=== PATIENT | female | born 1940 | race Caucasian/White ===

== ENCOUNTER 2017-07-01 10:50 | Emergency (ER) | payer OTHER, MEDICARE ==
[2017-07-01 11:23] VITALS: BP 117/64; PULSE 78; TEMP 97; BMI 18.9
[2017-07-01] MEDS ORDERED: SILVER SULFADIAZINE 1% TOP CREAM 50 GM JAR TP ONE (11:24)
--- NOTE | 2017-07-01 11:25 | PDOC ---
History of Present Illness - General Chief Complaint: Burn Stated Complaint: RIGHT HAND BURN Time Seen by Provider: 07/01/17 11:18 History Source: Patient Exam Limitations: No Limitations - History of Present Illness Initial Comments: 07/01/17 11:19 77 y/o female burned her hand with hot steam from tea Wednesday night. Now red, painful and blisters. UTD with Tetanus last 5 years. No fever or chills. Wants hand looked at. No fall or trauma. Past History - Past Medical History Allergies/Adverse Reactions: Allergies Allergy/AdvReac Type Severity Reaction Status Date / Time No Known Allergies Allergy Verified 07/01/17 11:16 Home Medications: Ambulatory Orders Cyanocobalamin (Vitamin B-12) [Vitamin B-12] 1,000 mcg PO DAILY 11/08/14 Folic Acid/Multivit-Min/Lutein [Centrum Silver Chewable Tablet] 1 each PO DAILY 11/08/14 Silver Sulfadiazine [Silvadene] 85 gm TP TID #1 cream..g. 07/01/17 Cardiac Disorders: Yes (MITRAL VALVE PROLAPSE) - Suicide/Smoking/Psychosocial Hx Smoking Status: No Smoking History: Never smoked Number of Cigarettes Smoked Daily: 0 Hx Alcohol Use: No Drug/Substance Use Hx: No Substance Use Type: None Review of Systems - Review of Systems Able to Perform ROS?: Yes Is the patient limited Bhutanese proficient: No Constitutional: No: Chills, Fever Respiratory: No: Shortness of Breath Cardiac (ROS): No: Chest Pain Musculoskeletal: No: Joint Pain Integumentary: Yes: Erythema. No: Pruritus Neurological: No: Numbness, Tingling All Other Systems: Reviewed and Negative *Physical Exam - Physical Exam General Appearance: Yes: Nourished, Appropriately Dressed. No: Apparent Distress HEENT: positive: Normal ENT Inspection, Normal Voice Neck: positive: Supple Respiratory/Chest: positive: Lungs Clear, Normal Breath Sounds Cardiovascular: positive: Regular Rhythm, Regular Rate, S1, S2. negative: Edema , JVD, Murmur Vascular Pulses: Femoral (R): 4+, Femoral (L): 4+, Carotid (R): 4+, Carotid (L) : 4+, Dorsalis-Pedis (R): 4+, Doralis-Pedis (L): 4+ Lymphatic: negative: Adenopathy, Tenderness, Other Musculoskeletal: positive: Normal Inspection. negative: CVA Tenderness Extremity: positive: Normal Capillary Refill, Normal Range of Motion. negative : Normal Inspection (2nd degree burn to right 4th and 5th fingers), Calf Tenderness Integumentary: positive: Normal Color, Dry, Warm, Erythema (erythema and blisters to right dorsum of 4th and 5th digits, full ROM, no swelling). 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 Will apply Silvadene cram to area, UTD with Tetanus Tylenol for pain Follow up with PMD Pt is in agreement with plan *DC/Admit/Observation/Transfer Diagnosis at time of Disposition: Second degree burn of finger of right hand Qualifiers: Encounter type: initial encounter Qualified Code(s): T23.221A - Burn of second degree of single right finger (nail) except thumb, initial encounter - Discharge Dispostion Disposition: HOME Condition at time of disposition: Good Admit: No - Referrals Referrals: Maribel Camp MD [Primary Care Provider] - - Patient Instructions Printed Discharge Instructions: DI for Michael Additional Instructions: Ice, Motrin, rest Silvadene cream to fingers 3x/day as needed IF worsen return to ER Follow up with PMD - Post Discharge Activity
== END 2017-07-01 11:57 | disposition home or self-care (01) ==
LOC: FER 10:50
PROC: 2W2EX4Z Dressing of Right Hand using Bandage (ICD-10-PCS; principal; 2017-07-01)
DX: T23.221A Burn of second degree of single right finger (nail) except thumb, initial encounter (principal); X13.1XXA Other contact with steam and other hot vapors, initial encounter; Y93.89 Activity, other specified; Y92.9 Unspecified place or not applicable
CPT/HCPCS: 99281-25

== ENCOUNTER 2017-07-03 09:50 | Emergency (ER) | payer OTHER, MEDICARE ==
[2017-07-03 10:07] VITALS: BP 107/64; PULSE 96; TEMP 98; BMI 18.9
--- NOTE | 2017-07-03 10:24 | PDOC ---
History of Present Illness - General Chief Complaint: Cold Symptoms Stated Complaint: FLU LIKE SYMPTOMS,COUGH Time Seen by Provider: 07/03/17 09:57 - History of Present Illness Initial Comments: 07/03/17 10:31 Chief complaint: Flu symptoms History of present illness: Fever, body aches, sore throat, nonproductive cough , for 3 days. Daughter with similar illness. Taking Advil Review of systems: No chest pain, shortness of breath, abdominal pain, nausea, vomiting, diarrhea, vaginal bleeding or discharge, UTI symptoms Past medical history: Healthy female, no active medical or surgical problems, asthma in the past but no recent flareups, no medications Social/family history: Nonsmoker, no drugs or alcohol, family history noncontributory Physical exam: Alert and oriented well-developed well-nourished no acute distress cheerful and cooperative Afebrile, vital signs normal HEENT clear Neck supple without bruit mass or nodes Chest clear with full breath sounds throughout bilaterally CV regular without murmur rub or gallop Abdomen benign Skin clear, no rash, adequate turgor and wet mucous membranes Neurological intact Impression: Viral illness, probably influenza, no serious respiratory compromise Plan: Tamiflu, continue Advil, cough suppressant for nighttime, follow-up if there is significant chest pain, shortness of breath, nausea, vomiting, or other serious symptoms. Fully ambulatory and in no distress upon discharge with family to follow-up as directed Past History - Past Medical History Allergies/Adverse Reactions: Allergies Allergy/AdvReac Type Severity Reaction Status Date / Time No Known Allergies Allergy Verified 07/03/17 09:51 Home Medications: Ambulatory Orders Guaifenesin AC [Robitussin-AC] 1 - 2 tsp PO HS PRN #60 ml MDD 2 07/03/17 Oseltamivir Phosphate [Tamiflu] 75 mg PO BID #10 capsule 07/03/17 Cardiac Disorders: Yes (MITRAL VALVE PROLAPSE) COPD: No - Immunization History Immunization Up to Date: Yes - Suicide/Smoking/Psychosocial Hx Smoking Status: No Smoking History: Never smoked Have you smoked in the past 12 months: No Number of Cigarettes Smoked Daily: 0 Information on smoking cessation initiated: No Hx Alcohol Use: No Drug/Substance Use Hx: No Substance Use Type: None *Physical Exam - Vital Signs Last Vital Signs Temp Pulse Resp BP Pulse Ox 98 F 96 H 20 107/64 98 07/03/17 09:51 07/03/17 09:51 07/03/17 09:51 07/03/17 09:51 07/03/17 09:51 *DC/Admit/Observation/Transfer Diagnosis at time of Disposition: Viral upper respiratory tract infection with cough - Discharge Dispostion Disposition: HOME Condition at time of disposition: Stable Admit: No - Prescriptions Prescriptions: Guaifenesin AC [Robitussin-AC] 1 - 2 tsp PO HS PRN #60 ml MDD 2 PRN Reason: Cough Oseltamivir Phosphate [Tamiflu] 75 mg PO BID #10 capsule - Referrals - Patient Instructions Printed Discharge Instructions: DI for Viral Upper Respiratory Infection -- Adult Additional Instructions: Medication as directed. Advil or ibuprofen for fever, body aches. Return to ER immediately if there is chest pain, shortness of breath, or other difficulty breathing. Otherwise see your primary physician for follow-up 2-3 days - Post Discharge Activity
== END 2017-07-03 10:48 | disposition home or self-care (01) ==
LOC: FER 09:50
DX: J06.9 Acute upper respiratory infection, unspecified (principal); B97.89 Other viral agents as the cause of diseases classified elsewhere; R05 Cough
CPT/HCPCS: 99282-25

== ENCOUNTER 2017-07-08 10:36 | Emergency (ER) | payer OTHER, MEDICARE ==
--- NOTE | 2017-07-08 11:00 | PDOC ---
History of Present Illness - General Chief Complaint: Pain Stated Complaint: left lower leg pain Time Seen by Provider: 07/08/17 10:43 - History of Present Illness Initial Comments: 07/08/17 10:54 Chief complaint Chin pain History of present illness: This is a 77-year-old woman with no significant past medical history except for asthma who presents to the emergency department with left zambrano pain hypersensitivity to touch over the zambrano which started this morning. Symptoms started while she was sleeping not with exertion she has no PE or DVT risk factors. There is no swelling to the calf. There is no history of trauma or injury to the area. There is no change in skin color there is no tingling or weakness. She describes it as pain with light touch it was moderate in severity when it started approximately an hour to 2 hours ago and it has since improved. She is ambulating comfortably around the emergency department. Symptoms were mild gradual in onset and have resolved with no intervention. She denies any fever chills headache chest pain shortness of breath nausea vomiting or diarrhea. No travel, last week she was diagnosed with the flu her daughter had the same symptoms she endorses that she has probably not been drinking as much water as she normally does. Past History - Past Medical History Allergies/Adverse Reactions: Allergies Allergy/AdvReac Type Severity Reaction Status Date / Time No Known Allergies Allergy Verified 07/08/17 10:38 Home Medications: Ambulatory Orders Budesonide/Formeterol Fumarate [SYMBICORT 160/4.5mcg -] 1 inh PO BID 07/08/17 Multivitamin/Iron/Folic Acid [Centrum Adults Tablet] 1 each PO DAILY 07/08/17 Cardiac Disorders: Yes (MITRAL VALVE PROLAPSE) COPD: No - Immunization History Immunization Up to Date: Yes - Suicide/Smoking/Psychosocial Hx Smoking Status: No Smoking History: Never smoked Have you smoked in the past 12 months: No Number of Cigarettes Smoked Daily: 0 Hx Alcohol Use: No Drug/Substance Use Hx: No Substance Use Type: None Review of Systems - Review of Systems Comments:: 07/08/17 10:56 ROS: A complete review of 10 out of 10 review of systems is taken and is negative apart from what is previously mentioned below and in the HPI. *Physical Exam - Physical Exam Comments: 07/08/17 10:56 Vitals: Triage Vital signs reviewed General Appearance: no acute distress, well nourished well developed, Head: Atraumatic, Neck: Supple;No Nucal rigidity Chest Wall: Nontender Cardiac: Regular rate and rhythym, no murmurs, no rubs, no gallops, Lungs: Clear to auscultation bilateral, good air movement bilaterally, Abdomen: Soft, non distended, normal bowel sounds, non tender to palpation Extremities: Full range of motion to all extremities, no cyanosis, clubbing, or edema, no calf swelling no tenderness to palpation neurovascularly intact. Good distal pulses. No skin color changes. Warm to touch. Skin: Warm and dry, no rashes or lesions, no rash, no petechiae Neuro: AOX3; Cranial Nerves 2-12 grossly intact, Strength intact to all extremities, Sensation intact to all extremities,gait normal Psych: normal mood, normal affect Medical Decision Making - Medical Decision Making 07/08/17 10:57 77 years old past medical history significant for asthma presents with one-hour history of hypersensitivity and pain to zambrano which has since resolved. No change with exertion no history of claudication one previous similar episode to this. No DVT risk factors. On physical examination there are no changes in skin color neurovascularly intact good distal pulses warm to touch no longer tender to palpation symptoms have since resolved Differential diagnosis includes dehydration/neuropathic pain/charley horse Given that his symptomatology has completely resolved she has no overt risk factors she is well-appearing no apparent distress we discussed the utility of obtaining a ultrasound to rule out DVT but given that her pain is resolved there is no swelling and she has no risk factors at this time we will hold off imaging. I recommended increasing her fluid intake, eating foods high in potassium such as bananas, she lives very close to the hospital and will return to the emergency department immediately if her symptoms return and worsen or for any concerns Findings, the need for follow-up, strict return instructions discussed with patient. *DC/Admit/Observation/Transfer Diagnosis at time of Disposition: Pain in zambrano Qualifiers: Laterality: left Qualified Code(s): M79.662 - Pain in left lower leg - Discharge Dispostion Disposition: HOME Admit: No - Referrals Referrals: Alex Oscar MD [Staff Physician] - - Patient Instructions Printed Discharge Instructions: DI for Musculoskeletal Pain Additional Instructions: Return to the emergency department for any returning severe worsening pain. If symptoms return or do not improve completely within a week follow-up with your primary care provider as well as with the orthopedist provided - Post Discharge Activity
[2017-07-08 11:03] VITALS: BP 141/75; PULSE 74; TEMP 98.1; BMI 18.9
== END 2017-07-08 11:18 | disposition home or self-care (01) ==
LOC: FER 10:36
DX: M79.662 Pain in left lower leg (principal); J45.909 Unspecified asthma, uncomplicated
CPT/HCPCS: 99281-25

== ENCOUNTER 2021-05-22 19:57 | Emergency (ER) | payer OTHER, MEDICARE ==
[2021-05-22 20:11] VITALS: BP 154/71; PULSE 88; TEMP 98.4; BMI 18.9
[2021-05-22] MEDS ORDERED: PANTOPRAZOLE SODIUM 40 MG VIAL IVPB ONE (20:33)
[2021-05-22] MEDS ORDERED: PANTOPRAZOLE SODIUM 40 MG VIAL ONE (20:40)
[2021-05-22 21:14] LABS: ALBUMIN 3.8 g/dl (3.4-5.0); CALCIUM 9.4 mg/dl (8.5-10); CREATININE 0.5 mg/dl (0.55-1.3); TOT PROT 6.1 g/dl (6.4-8.2)
[2021-05-22 21:33] LABS: BASO % 0.3 % (0-2.0); EOS % 0.5 % (0-4.5); HEMOGLOBIN 11.9 GM/dL (10.7-15.3); LYMPH % 21.5 % (8-40); MCHC 33.1 g/dl (32.0-36.0); MEAN CELL VOLUME 87.6 fl (80-96); MEAN PLT VOLUME 8.1 fl (7.5-11.1); MONO % 8.2 % (3.8-10.2); NEUT % 69.5 % (42.8-82.8); PLATELET COUNT 226 10^3/uL (134-434); RBC 4.11 M/mm3 (3.60-5.2); RDW 15.4 % (11.6-15.6); WHITE BLOOD COUNT 7.6 K/mm3 (4.0-10.0)
== END 2021-05-22 22:19 | disposition home or self-care (01) ==
LOC: FER 19:57
PROC: 3E033NZ Introduction of Analgesics, Hypnotics, Sedatives into Peripheral Vein, Percutaneous Approach (ICD-10-PCS; principal; 2021-05-22)
DX: K21.00 Gastro-esophageal reflux disease with esophagitis, without bleeding (principal)
CPT/HCPCS: 36415; 80053; 82550; 84484; 85025; 93005; 99283-25

== ENCOUNTER 2022-06-03 11:14 | Emergency (ER) | payer OTHER, MEDICARE ==
[2022-06-03 11:24] VITALS: BP 147/67; PULSE 58; RESP 16; TEMP 98; BMI 18.2
== END 2022-06-03 12:15 | disposition home or self-care (01) ==
LOC: FER 11:14
DX: R05.2 Subacute cough (principal)
CPT/HCPCS: 99282-25

== ENCOUNTER 2022-07-20 12:37 | Emergency (ER) | payer OTHER, MEDICARE ==
[2022-07-20 12:41] VITALS: BP 119/73; PULSE 98; RESP 18; TEMP 97.9; BMI 18.4
[2022-07-20] MEDS ORDERED: METHOCARBAMOL 500 MG TABLET PO ONE (12:59)
[2022-07-20] MEDS ORDERED: LIDOCAINE 5% TOPICAL PATCH TP ONE (13:00)
[2022-07-20] MEDS ORDERED: LIDOCAINE 5% TOPICAL PATCH ONE (13:02)
[2022-07-20] MEDS ORDERED: METHOCARBAMOL 500 MG TABLET ONE (13:02)
[2022-07-20] MEDS ORDERED: KETOROLAC TROMETHAMINE 30 MG/1 ML VIAL IM ONE (13:10)
[2022-07-20] MEDS ORDERED: KETOROLAC TROMETHAMINE 30 MG/1 ML VIAL ONE (13:20)
[2022-07-20] MEDS ORDERED: ACETAMINOPHEN 325 MG TABLET (FP) PO ONE (14:14)
[2022-07-20] MEDS ORDERED: ACETAMINOPHEN 500 MG TABLET (FP) ONE (14:19)
[2022-07-20] MEDS ORDERED: LIDOCAINE PATCH REMOVAL MC SCH (22:00)
== END 2022-07-20 16:36 | disposition home or self-care (01) ==
LOC: FER 12:37
PROC: 3E0233Z Introduction of Anti-inflammatory into Muscle, Percutaneous Approach (ICD-10-PCS; principal; 2022-07-20)
DX: M54.2 Cervicalgia (principal)
CPT/HCPCS: 70450-TC; 72125-TC; 99284-25

== ENCOUNTER 2024-09-18 15:57 | Emergency (ER) | payer OTHER, MEDICARE ==
[2024-09-18 16:13] VITALS: BP 151/75; PULSE 90; RESP 18; TEMP 98.9; BMI 25.7
[2024-09-18 17:59] LABS: ABSOLUTE IMMATURE GRANULOCYTES 0.02 x10^3/uL (0.0-0.031); BASOPHILS # 0.03 x10^3/uL (0.01-0.08); EOSINOPHIL % 0.6 % (0.7-5.8); EOSINOPHILS # 0.05 x10^3/uL (0.04-0.36); HEMATOCRIT 39.5 % (34.1-44.9); HEMOGLOBIN 12.5 g/dL (11.2-15.7); MCHC 31.6 g/dl (32.2-35.5); MEAN CELL VOLUME 91.2 fl (79.4-94.8); MEAN PLT VOLUME 10.1 fl (9.4-12.3); MONOCYTE # 0.59 x10^3/uL (0.24-0.86); MONOCYTE % 7.3 % (4.7-12.5); PLATELET COUNT 207 x10^3/uL (182-369); RDW 14.5 % (12.5-17.0)
[2024-09-18 18:19] LABS: POTASSIUM 3.8 mmol/L (3.5-5.1)
[2024-09-18 18:20] LABS: BLOOD UREA NITROGEN 22.6 mg/dL (7-18); CALCIUM 10.3 mg/dL (8.5-10.1)
[2024-09-18 18:24] LABS: CREATININE 0.7 mg/dL (0.55-1.3)
[2024-09-18 19:15] LABS: HCV DIAGNOSTIC IN-HOUSE W/RFLX NON-REACTIVE (NONREACTIVE)
[2024-09-18 19:16] LABS: HIV INTERPRETATION NEGATIVE (NEGATIVE)
== END 2024-09-18 18:58 | disposition home or self-care (01) ==
LOC: JER 15:57
DX: R07.9 Chest pain, unspecified (principal)
CPT/HCPCS: 36415; 71046-TC-FY; 80048; 84484; 85025; 86803; 87389; 93005; 93010; 99284-25